=== PATIENT | female | born 1985 | race Caucasian/White ===

== ENCOUNTER 2017-09-24 10:45 | Emergency (ER) | payer OTHER ==
[2017-09-24 11:00] VITALS: BMI 27.4
--- NOTE | 2017-09-24 11:47 | C.PDOC ---
History Of Present Illness 32 Y/O FEMALE PRESENTS TO ED WITH C/O PERSISTENT VAGINAL DISCHARGE SINCE 09/04 ASSOCIATED WITH NEW ONSET SUPRAPUBIC PAIN FOR SEVERAL WEEKS. PATIENT ADMITS TO BLOOD IN URINE AND STATES SHE IS CONCERNED FOR STD EXPOSURE FROM EX. PATIENT STATES SYMPTOMS ARE DIFFERENT FROM PREVIOUS VAGINAL INFECTIONS AND DENIES FEVER , CHILLS, NAUSEA, VOMITING, FOUL SMELL OR BACK PAIN. Time Seen by Provider: 09/24/17 11:41 Chief Complaint (Nursing): Female Genitourinary History Per: Patient History/Exam Limitations: no limitations Onset/Duration Of Symptoms: Days Current Symptoms Are (Timing): Still Present Quality Of Discomfort: "Pain" Associated Symptoms: Urinary Symptoms. denies: Fever, Nausea, Vomiting Past Medical History Reviewed: Historical Data, Nursing Documentation, Vital Signs Vital Signs: Last Vital Signs Temp 97.9 F 09/24/17 11:02 Pulse 87 09/24/17 11:02 Resp 17 09/24/17 11:02 BP 117/73 09/24/17 11:02 Pulse Ox 99 09/24/17 13:45 - Medical History PMH: No Chronic Diseases Surgical History: No Surg Hx Family History: States: No Known Family Hx - Social History Hx Alcohol Use: No Hx Substance Use: No - Immunization History Hx Tetanus Toxoid Vaccination: Yes Hx Influenza Vaccination: No Hx Pneumococcal Vaccination: No Review Of Systems Constitutional: Negative for: Fever, Chills Gastrointestinal: Negative for: Nausea, Vomiting Genitourinary: Positive for: Hematuria, Vaginal Discharge. Negative for: Dysuria Musculoskeletal: Negative for: Back Pain Physical Exam - Physical Exam Appears: Non-toxic, No Acute Distress Skin: Warm, Dry, No Rash Head: Atraumatic, Normacephalic Oral Mucosa: Moist Neck: Normal ROM, Supple Cardiovascular: Rhythm Regular Respiratory: Normal Breath Sounds, No Rales, No Rhonchi, No Wheezing Gastrointestinal/Abdominal: Soft, No Tenderness, No Guarding, No Rebound Back: No CVA Tenderness Pelvic: No Vaginal Bleeding, Vaginal Discharge (white thick odorless diffuse ), No Cervical Motion Tenderness, No Adnexal Tenderness, No Tender Uterus, Other ( No external lesions) Extremity: Normal ROM, Capillary Refill (<2 seconds) Neurological/Psych: Oriented x3, Normal Speech, Normal Cognition Additional Physical Exam Comments: [employer]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 [Outside] [facility] [Outside] Disposition: HOME/ ROUTINE Disposition Time: 13:30 Condition: IMPROVED Prescriptions: Metronidazole [Flagyl] 2,000 mg PO ONCE #5 tablet Instructions: Bacterial Vaginosis (DC), Screening for Sexually Transmitted Infections Forms: [employer] (Malay) Print Language: CITIZEN OF [place] - Clinical Impression Clinical Impression: Vaginosis - Scribe Statement The provider has reviewed the documentation as recorded by the Scribarsenio Tom All medical record entries made by the Genieibarsenio were at my direction and personally dictated by me. I have reviewed the chart and agree that the record accurately reflects my personal performance of the history, physical exam, medical decision making, and the department course for this patient. I have also personally directed, reviewed, and agree with the discharge instructions and disposition.
[2017-09-24 13:21] LABS: SQUAMOUS EPITHIAL 2 /hpf (0-5); URINE BILIRUBIN NEGATIVE (NEGATIVE); URINE BLOOD NEGATIVE (NEGATIVE); URINE CLARITY Hazy (Clear); URINE COLOR Yellow (YELLOW); URINE GLUCOSE (UA) NORMAL (Normal); URINE LEUKOCYTE ESTERASE TRACE Leu/uL (Negative); URINE PROTEIN NEGATIVE (NEGATIVE)
[2017-09-24] MEDS ORDERED: cefTRIAXone (Rocephin) 250 mg Inj IM STA (13:30)
[2017-09-24 14:11] VITALS: BP 116/80; PULSE 70; RESP 18; TEMP 98; O2SAT 100
== END 2017-09-24 14:15 | disposition home or self-care (01) ==
LOC: C.ER 10:45
DX: N76.0 Acute vaginitis (principal)
CPT/HCPCS: 81001; 87086; 87491; 87591; 96372; 99284; J0696